=== PATIENT | female | born 1960 | race Caucasian/White ===

== ENCOUNTER 2021-12-15 05:24 | Emergency (ER) | payer MEDICARE, OTHER ==
--- NOTE | 2021-12-15 05:58 | ERPHSYRPT ---
<YUMI STYLES - Last Filed: 12/15/21 06:39> - History of Present Illness Time Seen by Provider: 12/15/21 05:35 Historian: patient Exam Limitations: no limitations Patient Subjective Stated Complaint: Chest pain and back pain. Triage Nursing Assessment: Pt brought in via EMS. Patient restless in bed and moaning. A&O X 3. Respirations unlabored and regular. Patient smells of alcohol. Lung sounds clear throughout. Heart sounds regular, S1, S2 present. Patient has wounds over BUE and BLE. Physician History: This a 61-year-old obese, white female who is a poor historian secondary to, chris webb, intoxication with alcohol. She smells strongly of alcohol but her complaints are chest pain and back pain. She initially denied alcohol use but then has told at least 3 versions of a story of and she has had beer and shots. She is moaning and writhing [id number] in the bed. Ambulance gave her 4 baby aspirin and Zofran in route to the hospital. Patient has a history of hypertension, COPD, type 2 diabetes, DJD, fibromyalgia, gastroesophageal reflux disease and anxiety issues. Timing/Duration: today Activities at Onset: none Quality: aching Location: substernal, central Chest Pain Radiation: back Severity of Pain-Max: moderate Severity of Pain-Current: moderate Associated Symptoms: back pain Nitro Today/Relief: no nitro taken today Aspirin Treatment Today: 81 mg x 4, provided by EMS Allergies/Adverse Reactions: adhesive tape Allergy (Verified 12/15/21 05:26) Home Medications: ALPRAZolam [Alprazolam] 2 mg PO QID PRN PRN 11/25/14 [History] Albuterol 2.5 mg/3 ml Neb [Proventil 2.5 mg/3 ml Neb] 2.5 mg IH Q4H PRN PRN 11/25/14 [History] Albuterol Sulfate [Proventil Hfa] 6.7 gm IH Q4H PRN PRN 11/25/14 [History] Carbidopa/Levodopa [Carbidopa-Levo 10-100 mg Odt] 1 each PO QPM 11/25/14 [History] Dextroamphetamine/Amphetamine [Amphetamine Salts 30 mg Tablet] 30 mg PO DAILY 11/25/14 [History] Diclofenac Sodium [Voltaren] 75 mg PO BID 11/25/14 [History] Dicyclomine HCl 20 mg [Bentyl 20 mg] 20 mg PO QID 11/25/14 [History] Duloxetine HCl [Cymbalta] 60 mg PO DAILY 11/25/14 [History] Fluticasone Propionate [Flovent Diskus] 50 mcg IH DAILY 11/25/14 [History] Fluticasone/Salmeterol [Advair 100-50 Diskus] 1 each IH BID 11/25/14 [History] Fluticasone/Vilanterol [Breo Ellipta 100-25 Mcg INH] 1 each IH DAILY 11/25/14 [History] Fluvoxamine Maleate 100 mg PO DAILY 11/25/14 [History] Lisinopril 20 mg [Zestril 20 MG] 20 mg PO DAILY 11/25/14 [History] Meclizine HCl [Antivert] 25 mg PO TID 11/25/14 [History] Milnacipran HCl [Savella] 100 mg PO BID 11/25/14 [History] Morphine Sulfate [Morphine Sulfate ER] 60 mg PO TID 11/25/14 [History] Mupirocin [Bactroban OINTMENT] 22 gm TP TID PRN 11/25/14 [History] Nortriptyline HCl [Pamelor] 10 - 20 mg PO QHS 11/25/14 [History] Omeprazole 20 MG [Prilosec 20 mg] 20 mg PO DAILY 11/25/14 [History] Oxycodone / APAP 10/325 mg [Oxycodone-Acetaminophen 10-325] 1 tab PO Q6H PRN PRN 11/25/14 [History] Potassium Chloride Tab* [Klor Con] 20 meq PO DAILY PRN PRN 11/25/14 [History] Pregabalin [Lyrica] 100 mg PO UD 11/25/14 [History] Tiotropium [place] Inhaler [Spiriva 18 Mcg/Cap Inhaler] 1 ea IH DAILY PRN PRN 11/25/14 [History] estradioL [Estrace] 2 mg PO DAILY 11/25/14 [History] Hx Tetanus, Diphtheria Vaccination/Date Given: No Hx Influenza Vaccination/Date Given: No Hx Pneumococcal Vaccination/Date Given: No Immunizations Up to Date: No Travel Risk - International Travel Have you traveled outside of the country in past 3 weeks: No - Coronavirus Screening Are you exhibiting any of the following symptoms?: No Symptoms: Shortness of Breath - Vaccine Status Have you recieved a Covid-19 vaccination: Yes Refrigerator Glazier: Unknown - Vaccination Dates Date of 2cond Vaccination (if applicable): UNKNOWN Dates if Unknown: UNKNOWN - Review of Systems Constitutional: No Symptoms Eyes: No Symptoms Ears, Nose, & Throat: No Symptoms Respiratory: No Symptoms Cardiac: Chest Pain Abdominal/Gastrointestinal: No Symptoms Genitourinary Symptoms: No Symptoms Musculoskeletal: No Symptoms Skin: No Symptoms Psychological: Other (Smells and axis though there is some type of intoxication) Endocrine: No Symptoms Hematologic/Lymphatic: No Symptoms Immunological/Allergic: No Symptoms All Other Systems: Reviewed and Negative - Past Medical History Pertinent Past Medical History: Yes Neurological History: No Pertinent History ENT History: No Pertinent History Cardiac History: Hypertension Respiratory History: COPD, Bronchitis, Emphysema Endocrine Medical History: Diabetes Type II Musculoskeletal History: Osteoarthritis, Degenerative Disk Disease, Fibromyalgia GI Medical History: Ulcer, GERD History: No Pertinent History Psycho-Social History: Depression, Anxiety Female Reproductive Disorders: Fibroids, Menstrual Problems Other Medical History: MRSA IN SORE IN PAST, HEALED - Past Surgical History Past Surgical History: Yes Neuro Surgical History: Other Cardiac: No Pertinent History Respiratory: No Pertinent History Gastrointestinal: No Pertinent History Genitourinary: No Pertinent History Musculoskeletal: Other Female Surgical History: Hysterectomy, Section Other Surgical History: BACK SURGERY, RIGHT SHOULDER REPAIR, NEUROSTIMULATER IN BACK NOT CHARGED AT THIS TIME. TOES - Social History Smoking Status: Current every day smoker How long have you smoked: 28 Exposure to second hand smoke: Yes Drug Use: none Patient Lives Alone: No - Physical Exam General Appearance: mild distress, anxiety, lethargy (Mild lethargy with arousability), obese, other (Patient rolling side to side and moaning on the bed) Eye Exam: PERRL/EOMI, eyes nml inspection Ears, Nose, Throat Exam: normal ENT inspection, moist mucous membranes Neck Exam: normal inspection, non-tender, supple, full range of motion Respiratory Exam: normal breath sounds, chest tenderness, lungs clear, airway intact, No respiratory distress Cardiovascular Exam: regular rate/rhythm, normal heart sounds, normal peripheral pulses Gastrointestinal/Abdomen Exam: soft, normal bowel sounds, No tenderness Pelvic Exam: not done Rectal Exam: not done Back Exam: normal inspection, normal range of motion, No CVA tenderness, No vertebral tenderness Extremity Exam: normal inspection, normal range of motion, pelvis stable Neurologic Exam: intoxicated appearance Skin Exam: other (To pull sores on bilateral lower extremities.) Lymphatic Exam: No adenopathy SpO2 Interpretation: normal SpO2: 97 O2 Delivery: Room Air - Course Nursing assessment & vital signs reviewed: Yes EKG Interpreted by Me: RATE (73), Sinus Rhythm, NORMAL AXIS, NORMAL INTERVALS, NORMAL QRS, NORMAL ST-T, Other (No acute ischemic changes on today's EKG.) - Progress Progress Note: 12/15/21 06:39 Patient care is being transferred to Dr. Sonali Escalona at shift change. He will follow-up on the results of the remaining work-up including lab work and radiographic studies. Blood Culture(s) Obtained: No Antibiotics given: No Counseled pt/family regarding: lab results, diagnosis, rad results - Departure Departure Disposition: Observation Clinical Impression: Alcohol intoxication, Confusion, Empty sella, Hypokalemia, Amphetamine use, Atherosclerotic vascular calcification, Lung granuloma, Hepatic steatosis Condition: Fair Critical Care Time: No Referrals: NEGRITA CORADO [Primary Care Provider] - Follow up/PCP as directed Additional Instructions: Discharge/Care Plan SOY VINSON was seen on 12/15/21 in the Emergency Room. The patient was counseled regarding Diagnosis,Lab results, Imaging studies, need for follow up and when to return to the Emergency Room. Prescriptions given: Discharge Note I have spoken with the patient and/or caregivers. I have explained the patient's condition, diagnosis and treatment plan based on the information available to me at this time. I have answered the patient's and/or caregiver's questions and addressed any concerns. The patient and/or caregivers have as good understanding of the patient's diagnosis, condition and treatment plan as can be expected at this point. The vital signs have been stable. The patient's condition is stable and appropriate for discharge from the emergency department. The patient will pursue further outpatient evaluation with the primary care physician or other designated or consulting physician as outlined in the discharge instructions. The patient and/or caregivers are agreeable to this plan of care and follow-up instructions have been explained in detail. The patient and/or caregivers have received these instruction. The patient/and or caregivers are aware that any significant change in condition or worsening of symptoms should prompt an immediate return to this or the closest emergency department or call 911. <SONALI ESCALONA - Last Filed: 12/15/21 10:22> - Nursing Vital Signs Nursing Vital Signs: Initial Vital Signs Temperature 98.4 F 12/15/21 05:25 Pulse Rate 74 12/15/21 05:25 Respiratory Rate 16 12/15/21 05:25 Blood Pressure 124/73 12/15/21 05:25 O2 Sat by Pulse Oximetry 97 12/15/21 05:25 Pain Scale Pain Intensity 0 - Radiology Exams Chest X-ray Interpretation: Interpreted by me (negative for acute changes) - CT Exams Head CT Interpretation: Tele-radiologist Report (Empty sella. No acute intracranial hemorrhage or infarct) Ordered Tests: Active Orders 24 hr Category Date Time Status AMA [Release AMA] OM.NOW Care 12/15/21 10:16 Active AMA [Release AMA] OM.NOW Care 12/15/21 10:16 Ordered Police Communications Operator STAT Care 12/15/21 06:04 Active Clean Catch Urine Specimen STAT Care 12/15/21 06:03 Active EKG-ER Only STAT Care 12/15/21 06:03 Active IV Insertion STAT Care 12/15/21 06:03 Active Pulse Oximetry (ED) STAT Care 12/15/21 06:03 Active CHEST 1 VIEW (PORTABLE) Stat Exams 12/15/21 06:04 Taken CHEST WITH CONTRAST [CT] Stat Exams 12/15/21 07:26 Completed HEAD WITHOUT CONTRAST [CT] Stat Exams 12/15/21 06:14 Taken ACETAMINOPHEN Stat Lab 12/15/21 06:20 Completed AMYLASE Stat Lab 12/15/21 07:03 Completed CBC W DIFF Stat Lab 12/15/21 06:20 Completed CMP Stat Lab 12/15/21 06:20 Completed D-DIMER QUANTITATIVE Stat Lab 12/15/21 06:20 Completed ETHYL ALCOHOL Stat Lab 12/15/21 06:20 Completed LIPASE Stat Lab 12/15/21 07:03 Completed NT PRO BNP Stat Lab 12/15/21 06:20 Completed SALICYLATE Stat Lab 12/15/21 06:20 Completed TROPONIN Q4H Lab 12/15/21 06:20 Completed TROPONIN Q4H Lab 12/15/21 10:15 Ordered TROPONIN Q4H Lab 12/15/21 14:15 Ordered Urine Triage Profile Stat Lab 12/15/21 06:08 Completed Medication Summary Generic Name Dose Route Start Last Admin Trade Name Freq PRN Reason Stop Dose Admin Sodium Chloride 1,000 mls @ 100 mls/hr 12/15/21 06:15 12/15/21 06:14 Sodium Chloride 0.9% 1000 Ml IV 01/14/22 06:14 100 mls/hr .Q10H GEORGE Administration Discontinued Medications Generic Name Dose Route Start Last Admin Trade Name Freq PRN Reason Stop Dose Admin Pantoprazole Sodium 40 mg 12/15/21 06:05 12/15/21 06:14 Pantoprazole 40 Mg Vial IV 12/15/21 06:06 40 mg STAT ONE Administration Pantoprazole Sodium Confirm 12/15/21 06:11 Pantoprazole 40 Mg Vial Administered 12/15/21 06:12 Dose 40 mg IV .STFolderBoy-[facility]er Labs ONE Lab/Rad Data: Laboratory Result Diagrams 12/15/21 06:20 12/15/21 06:20 Laboratory Results 12/15/21 12/15/21 12/15/21 Range/Units 07:03 06:20 06:20 WBC (4.0-10.5) x10^3/uL RBC (4.1-5.4) x10^6/uL Hgb (12.0-16.0) g/dL Hct (35-47) % MCV (78-100) fL MCH (26-32) pg MCHC (32-36) g/dL RDW (11.5-14.0) % Plt Count (150-450) x10^3/uL MPV (7.5-11.0) fL Gran % (36.0-66.0) % Immature Gran % (Auto) (0.00-0.4) % Nucleat RBC Rel Count (0.00-0.1) % Eos # (Auto) (0-0.5) x10^3/uL Immature Gran # (Auto) (0.00-0.03) x10^3u/L Absolute Lymphs (auto) (1.0-4.6) x10^3/uL Absolute Monos (auto) (0.0-1.3) x10^3/uL Absolute Nucleated RBC (0.00-0.01) x10^3u/L Lymphocytes % (24.0-44.0) % Monocytes % (0.0-12.0) % Eosinophils % (0.00-5.0) % Basophils % (0.0-0.4) % Absolute Granulocytes (1.4-6.9) x10^3/uL Basophils # (0-0.4) x10^3/uL D-Dimer (0.0-0.50) mg/L Sodium 139 (137-145) mmol/L Potassium 3.4 L (3.5-5.1) mmol/L Chloride 109 H (98-107) mmol/L Carbon Dioxide 26 (22-30) mmol/L Anion Gap 7.8 (5-15) MEQ/L BUN 9 (7-17) mg/dL Creatinine 0.53 (0.52-1.04) mg/dL Estimated GFR > 60.0 ML/MIN Glucose 84 (74-106) mg/dL Calcium 8.8 (8.4-10.2) mg/dL Total Bilirubin 0.30 (0.2-1.3) mg/dL AST 47 H (14-36) U/L ALT 38 H (0-35) U/L Alkaline Phosphatase 72 (38-126) U/L Troponin I < 0.012 (0.000-0.034) ng/mL NT-Pro-B Natriuret Pep 124 (0-900) pg/mL Serum Total Protein 6.9 (6.3-8.2) g/dL Albumin 3.9 (3.5-5.0) g/dL Amylase 51 (30-110) U/L Lipase 14 L (23-300) U/L Salicylates 1.5 L (2-20) mg/dL Urine Opiates Level (NEGATIVE) Ur Methadone (NEGATIVE) Acetaminophen < 10 L (10-30) ug/ml Urine Barbiturates (NEGATIVE) Ur Phencyclidine (PCP) (NEGATIVE) Urine Amphetamine (NEGATIVE) U Benzodiazepine Level (NEGATIVE) Urine Cocaine (NEGATIVE) Urine Marijuana (THC) (NEGATIVE) Ethyl Alcohol 60 H (0-10) mg/dL 12/15/21 12/15/21 12/15/21 Range/Units 06:20 06:20 06:08 WBC 10.1 (4.0-10.5) x10^3/uL RBC 4.30 (4.1-5.4) x10^6/uL Hgb 13.2 (12.0-16.0) g/dL Hct 40.3 (35-47) % MCV 93.7 (78-100) fL MCH 30.7 (26-32) pg MCHC 32.8 (32-36) g/dL RDW 12.9 (11.5-14.0) % Plt Count 290 (150-450) x10^3/uL MPV 9.3 (7.5-11.0) fL Gran % 65.2 (36.0-66.0) % Immature Gran % (Auto) 0.4 (0.00-0.4) % Nucleat RBC Rel Count 0.0 (0.00-0.1) % Eos # (Auto) 0.12 (0-0.5) x10^3/uL Immature Gran # (Auto) 0.04 H (0.00-0.03) x10^3u/L Absolute Lymphs (auto) 2.63 (1.0-4.6) x10^3/uL Absolute Monos (auto) 0.68 (0.0-1.3) x10^3/uL Absolute Nucleated RBC 0.00 (0.00-0.01) x10^3u/L Lymphocytes % 26.0 (24.0-44.0) % Monocytes % 6.7 (0.0-12.0) % Eosinophils % 1.2 (0.00-5.0) % Basophils % 0.5 (0.0-0.4) % Absolute Granulocytes 6.60 (1.4-6.9) x10^3/uL Basophils # 0.05 (0-0.4) x10^3/uL D-Dimer 1.29 H* (0.0-0.50) mg/L Sodium (137-145) mmol/L Potassium (3.5-5.1) mmol/L Chloride (98-107) mmol/L Carbon Dioxide (22-30) mmol/L Anion Gap (5-15) MEQ/L BUN (7-17) mg/dL Creatinine (0.52-1.04) mg/dL Estimated GFR ML/MIN Glucose (74-106) mg/dL Calcium (8.4-10.2) mg/dL Total Bilirubin (0.2-1.3) mg/dL AST (14-36) U/L ALT (0-35) U/L Alkaline Phosphatase (38-126) U/L Troponin I (0.000-0.034) ng/mL NT-Pro-B Natriuret Pep (0-900) pg/mL Serum Total Protein (6.3-8.2) g/dL Albumin (3.5-5.0) g/dL Amylase (30-110) U/L Lipase (23-300) U/L Salicylates (2-20) mg/dL Urine Opiates Level NEGATIVE (NEGATIVE) Ur Methadone NEGATIVE (NEGATIVE) Acetaminophen (10-30) ug/ml Urine Barbiturates NEGATIVE (NEGATIVE) Ur Phencyclidine (PCP) NEGATIVE (NEGATIVE) Urine Amphetamine POSITIVE (NEGATIVE) U Benzodiazepine Level NEGATIVE (NEGATIVE) Urine Cocaine NEGATIVE (NEGATIVE) Urine Marijuana (THC) NEGATIVE (NEGATIVE) Ethyl Alcohol (0-10) mg/dL - Progress Progress: improved Air Movement: good Progress Note: Patient endorsed to Dr. Escalona at approximately [address] negative for PE. Initial troponin negative. Second troponin required however patient does not want to wait for the second troponin. She is requesting to leave AGAINST MEDICAL ADVICE. AMA orders entered. AMA form completed. Patient is of sound mind. Patient is appropriate to make informed and independent medical decisions. Patient understands that leaving AGAINST MEDICAL ADVICE can result in delayed diagnosis, increased risk of morbidity, mortality, short and long-term disability including . In spite of these risks, patient has decided to leave AGAINST MEDICAL ADVICE. Patient understands that she may return to our ED at any point if she reconsiders. Patient agrees to follow-up with her primary care doctor within 48 hours for reevaluation. Patient voices no other complaints or concerns at this time. We will release patient AGAINST MEDICAL ADVICE per their request. 12/15/21 10:19 Portions of this note were created with voice recognition technology. There may be grammatical, spelling, punctuation or sound alike errors - Departure Departure Disposition: Home
[2021-12-15] MEDS ORDERED: PROTONIX 40 MG IV IV ONE ×2 (06:05→06:11)
[2021-12-15] MEDS ORDERED: Sodium Chloride 0.9% 1000 ML 1,000 ML ONE (06:11)
[2021-12-15] MEDS ORDERED: Sodium Chloride 0.9% 1000 ML 1,000 ML IV SCH (06:15)
[2021-12-15 06:23] LABS: Basophil (Absolute #) 0.05 x10^3/uL (0-0.4); Eosinophil % 1.2 % (0.00-5.0); Eosinophil (Absolute #) 0.12 x10^3/uL (0-0.5); Hematocrit 40.3 % (35-47); Hemoglobin 13.2 g/dL (12.0-16.0); Lymphocyte (Absolute #) 2.63 x10^3/uL (1.0-4.6); Mean Cell Volume 93.7 fL (78-100); Mean Corpuscular Hemoglobin 30.7 pg (26-32); Mean Corpuscular Hgb Concent. 32.8 g/dL (32-36); Mean Platelet Volume 9.3 fL (7.5-11.0); Monocyte (Absolute #) 0.68 x10^3/uL (0.0-1.3); Monocytes % 6.7 % (0.0-12.0); Neutrophil % 65.2 % (36.0-66.0); Platelet Count 290 x10^3/uL (150-450); Red Cell Distribution Width 12.9 % (11.5-14.0); White Blood Count 10.1 x10^3/uL (4.0-10.5)
[2021-12-15 06:54] LABS: ACETAMINOPHEN < 10 ug/ml (10-30); ALBUMIN 3.9 g/dL (3.5-5.0); ALKALINE PHOSPHATASE 72 U/L (38-126); ANION GAP 7.8 MEQ/L (5-15); BLOOD UREA NITROGEN 9 mg/dL (7-17); CHLORIDE 109 mmol/L (98-107); Calcium 8.8 mg/dL (8.4-10.2); Carbon Dioxide 26 mmol/L (22-30); Creatinine 1 0.53 mg/dL (0.52-1.04); EST GLOMERULAR FILTRATION RATE > 60.0 ML/MIN; ETHYL ALCOHOL 60 mg/dL (0-10); Glucose 84 mg/dL (74-106); NT PRO BNP 124 pg/mL (0-900); Potassium 3.4 mmol/L (3.5-5.1); SALICYLATE 1.5 mg/dL (2-20); SGOT/AST 47 U/L (14-36); SGPT/ALT 38 U/L (0-35); SODIUM 139 mmol/L (137-145); Total Protein 6.9 g/dL (6.3-8.2)
[2021-12-15 07:21] VITALS: O2SAT 98
[2021-12-15 07:38] LABS: AMYLASE 51 U/L (30-110); LIPASE 14 U/L (23-300)
[2021-12-15 07:51] LABS: Barbiturate,Urine NEGATIVE (NEGATIVE); Benzodiazepine,Urine NEGATIVE (NEGATIVE); Cocaine,Urine NEGATIVE (NEGATIVE); Methadone,Urine NEGATIVE (NEGATIVE); Opiate,Urine NEGATIVE (NEGATIVE); PCP,Urine NEGATIVE (NEGATIVE); THC,Urine NEGATIVE (NEGATIVE)
[2021-12-15 08:23] LABS: Amphetamine,Urine POSITIVE (NEGATIVE)
--- NOTE | 2021-12-15 09:41 | XRAY ---
Exam: CT Chest PE protocol CTDI: 23.68 mGy Comparison: AP portable chest film from earlier today on 12/15/2021. Indication: 61-year-old female with chest pain; elevated d-dimer of 1.29; rule out PE. Technique: Post IV contrast axial images were obtained through the chest, per protocol. Automated injection using 100 cc of Isovue 370 contrast was utilized. Reconstructed coronal and sagittal images were created and reviewed. Findings: CT of the chest is performed with IV contrast utilizing a pulmonary embolism protocol. No CT evidence for pulmonary embolism or aortic dissection is seen. No thoracic aortic aneurysm is seen. There is some atherosclerotic vascular calcification within the aortic arch and distal descending thoracic aorta. The heart size is normal. The lungs are clear of focal infiltrate or indeterminate pulmonary nodule. There is a small calcified granuloma within the left lateral costophrenic angle. There is a suggestion of some minimal subsegmental atelectasis at the anterior aspect of both lung bases. No hilar, mediastinal, or axillary adenopathy. No pleural or pericardial effusions. The thyroid gland appears grossly unremarkable. Scans of the upper abdomen reveals some beam hardening artifact from the orthopedic hardware within the thoracolumbar spine. There is some diffuse decreased attenuation of the liver which may be due to fatty infiltration. The adrenal glands are normal. Fusion hardware is seen within the cervical spine on both sides of midline. There is also an orthopedic plate with 6 adjoining screws attached to the mid and lateral aspects of the right clavicle. Rodriguez rods with adjoining screws are seen on each side of midline extending from T10 inferiorly off the lower margin of the [id number]. There is a small Schmorl's node within the anterior aspect of the superior vertebral endplate of T7. Narrowing of the T8-T9 and T9-T10 interspaces associated with vacuum disc phenomena and moderate anterior vertebral endplate spurring is seen consistent with moderate degenerative disc disease at these levels. I also note moderate degenerative disc disease at C5-C6 and C6-C7, as well as mild to moderate anterior vertebral endplate spurring throughout the visualized thoracolumbar spine. Impression: 1. No CT evidence for pulmonary embolism. 2. No pulmonary infiltrates or suspicious lung nodules. 3. No abnormal lymphadenopathy is seen. 4. Suspect hepatic steatosis. Correlate clinically. 5. Extensive orthopedic hardware, as discussed above.
[2021-12-15 10:16] VITALS: BP 145/60; PULSE 62
--- NOTE | 2021-12-16 21:06 | XRAY ---
Exam: AP portable chest film from 12/15/2021. Comparison: Two-view chest series from 11/25/2014. Indication: Chest pain, back pain Findings: The heart size is normal. There is mild tortuosity of the ascending and descending thoracic aorta. The chaparro and mediastinal structures appear unremarkable. The lung michaud appear clear except for a tiny stable calcified granuloma within the left lateral costophrenic angle. Pulmonary vascularity is normal. No pneumothorax or pleural effusion is seen. I again see an orthopedic plate with 6 adjoining screws within the mid and lateral thirds of the right clavicle. There are new longitudinal rods with adjoining pedicle screws on each side of midline within the cervical spine. This is only partially seen on the chest film. In addition, prior spinal stimulator has been removed, and there are now longitudinal Rodriguez rods with pedicle screws extending from T10 inferiorly on both sides of midline off the edge of the film. Mild osteoarthritis of both acromioclavicular joints is seen. Impression: 1. No acute cardiopulmonary disease is seen, no change from 11/25/2014. 2. Evidence of prior orthopedic surgery, as discussed above.
--- NOTE | 2021-12-16 21:20 | XRAY ---
Exam: CT of the head without IV contrast from 12/15/2021. CTDI: 56.79 mGy Comparison: CT of the head without and with IV contrast from 02/22/2014. Indication: 61-year-old female with blunt trauma; fell striking head on coffee table; confusion. Technique: Non-IV contrast axial images were obtained through the brain. Reconstructed coronal and sagittal images were created and reviewed. Findings: The ventricles are normal size. No focal mass effect or midline shift is seen. No acute intracranial bleed or abnormal extra-axial fluid collection is seen. Aldrich matter-white matter differentiation is preserved. I see no low attenuation infarct. The cortical sulci, fissures, and basilar cisterns appear unremarkable. On the midline sagittal images, there appears to be an empty sella with a depressed flattened pituitary gland seen. The calvarium of the skull appears intact without fracture. There is some mild mucosal thickening within the ethmoid sinuses suggesting chronic sinus disease. The remainder the paranasal sinuses are clear without air-fluid levels. The mastoid air cells are clear without effusion. The middle ear cavities appear grossly unremarkable. The orbits appear grossly unremarkable. The patient's head is slightly tilted in the CT gantry. I do not see any significant scalp hematoma. Impression: 1. No acute intracranial bleed or other acute intracranial process is seen. 2. There is mild/moderate chronic bilateral ethmoid sinus mucosal thickening/disease. There is also minimal mucosal thickening within the inferior aspect of the frontal sinus. No air-fluid levels are seen.
== END 2021-12-15 10:24 | disposition left against medical advice (07) ==
LOC: ED 05:24
DX: F10.129 Alcohol abuse with intoxication, unspecified (principal); Y90.3 Blood alcohol level of 60-79 mg/100 ml; R41.0 Disorientation, unspecified; E23.6 Other disorders of pituitary gland; E87.6 Hypokalemia; F15.90 Other stimulant use, unspecified, uncomplicated; I70.90 Unspecified atherosclerosis; J84.10 Pulmonary fibrosis, unspecified; K76.0 Fatty (change of) liver, not elsewhere classified; R07.9 Chest pain, unspecified; M54.9 Dorsalgia, unspecified; I10 Essential (primary) hypertension; E11.9 Type 2 diabetes mellitus without complications; J43.9 Emphysema, unspecified; Z72.0 Tobacco use
CPT/HCPCS: 36000; 36415; 70450; 71045; 71260; 80053; 80307; 82150; 83690; 83880; 84484; 85025; 85379; 93005; 93041; 94760; 96374; 99284; G0480

== ENCOUNTER 2024-03-28 20:18 | Emergency (ER) | payer MEDICARE, OTHER ==
[2024-03-28 20:48] VITALS: RESP 18; TEMP 97
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
[2024-03-28] MEDS ORDERED: TYLENOL 325 MG ONE (22:24)
[2024-03-28] MEDS: TYLENOL 325 MG PO ONE (22:26)
[2024-03-28 23:00] VITALS: PULSE 77
[2024-03-29 00:05] VITALS: O2SAT 98
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
[2024-03-29 01:20] VITALS: BP 154/87
[2024-03-29 01:49] LABS: Barbiturate,Urine NEGATIVE (NEGATIVE); Benzodiazepine,Urine NEGATIVE (NEGATIVE); Cocaine,Urine NEGATIVE (NEGATIVE); Methadone,Urine NEGATIVE (NEGATIVE); Opiate,Urine POSITIVE (NEGATIVE); PCP,Urine NEGATIVE (NEGATIVE); THC,Urine NEGATIVE (NEGATIVE)
[2024-03-29 02:29] LABS: Amphetamine,Urine POSITIVE (NEGATIVE)
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
== END 2024-03-29 01:15 | disposition home or self-care (01) ==
LOC: ED 20:18
DX: S13.4XXA Sprain of ligaments of cervical spine, initial encounter (principal); S50.812A Abrasion of left forearm, initial encounter; M54.2 Cervicalgia; S43.402A Unspecified sprain of left shoulder joint, initial encounter; R51.9 Headache, unspecified; M25.512 Pain in left shoulder; M79.642 Pain in left hand; V53.5XXA Driver of pick-up truck or van injured in collision with car, pick-up truck or van in traffic accident, initial encounter
CPT/HCPCS: 36415; 70450; 72125; 73030; 73060; 73090; 73130; 80307; 99285; L0120; A9270-GY